=== PATIENT | female | born 1985 | race Caucasian/White ===

== ENCOUNTER → 2020-06-20 09:14 | Outpatient (BNVA) | payer OTHER, SELFPAY | PROVIDERS: Visit Provider Physician Assistant Medical | DX: S61.012A Laceration without foreign body of left thumb without damage to nail, initial encounter (principal); W26.0XXA Contact with knife, initial encounter | CPT/HCPCS: 12001; 99203 ==

== ENCOUNTER → 2020-06-22 14:45 | Outpatient (BNVA) | payer OTHER, SELFPAY | PROVIDERS: Visit Provider Physician Assistant | DX: S61.012A Laceration without foreign body of left thumb without damage to nail, initial encounter (principal); W22.09XA Striking against other stationary object, initial encounter | CPT/HCPCS: 99213 ==